=== PATIENT | female | born 1980 | race Caucasian/White ===

== ENCOUNTER 2024-03-09 20:21 | Emergency (ER) | payer BC ==
[~2024-03-09] VITALS: Ht 157.5 cm; Wt 113.4 kg
[2024-03-09 20:34] VITALS: BP_SYST 135; PULSE 80; RESP 18; TEMP 98.6; O2SAT 99
[2024-03-09 20:56] LABS: BASOPHILS # (AUTO) 0.1 K/uL (0.0-0.2); BASOPHILS % (AUTO) 0.9 % (0.0-2.0); EOSINOPHILS # (AUTO) 0.5 K/uL (0.0-0.4); EOSINOPHILS % (AUTO) 3.7 % (0.0-4.0); HEMATOCRIT 34.5 % (36-48); HEMOGLOBIN 11.3 g/dL (12.0-16.0); LYMPHOCYTES # (AUTO) 3.5 K/uL (1.0-5.5); LYMPHOCYTES % (AUTO) 27.3 % (20.5-51.5); MEAN CORPUSCULAR HEMOGLOBIN 26 pg (27-31); MEAN CORPUSCULAR HGB CONC 33 % (32-36); MEAN CORPUSCULAR VOLUME 80 fL (79.0-98.0); MONOCYTES # (AUTO) 0.6 K/uL (0.0-1.0); NEUTROPHILS # (AUTO) 8.2 K/uL (1.8-7.7); NEUTROPHILS % (AUTO) 63.1 % (40.0-70.0); PLATELET COUNT (AUTO) 341 K/uL (130-430); RED BLOOD CELL COUNT(AUTO) 4.33 MIL/uL (4.2-6.2); RED CELL DISTRIBUTION WIDTH 15.9 % (9.0-15.0)
[2024-03-09] MEDS: KETOROLAC TROMETHAMINE 60 MG/2 ML VIAL IM ONE (21:00)
[2024-03-09 21:19] LABS: ANION GAP 10 (5-15); CALCIUM 8.5 mg/dL (8.4-11.0); CARBON DIOXIDE 25 mmol/L (23-29); CHLORIDE 101 mmol/L (98-107); CREATININE 0.85 mg/dL (0.55-1.30); GFR AFRICAN AMERICAN 93 mL/min (>90); GLUCOSE 156 mg/dL (74-106); POTASSIUM 3.8 mmol/L (3.5-5.1); SODIUM SERUM 136 mmol/L (136-145); UREA NITROGEN, BLOOD 9 mg/dL (8-21)
[2024-03-09 21:20] LABS: GFR NON AFRICAN-AMERICAN 77 mL/min (>90)
[2024-03-09 21:26] LABS: THYROID STIMULATING HORMONE 2.64 uIu/mL (0.34-4.82)
[2024-03-10 01:08] VITALS: BP_SYST 153; PULSE 78; RESP 20; TEMP 98; O2SAT 98
== END 2024-03-10 01:08 | disposition home or self-care (01) ==
LOC: SED 20:21
DX: R07.89 Other chest pain (principal); E66.9 Obesity, unspecified; R73.03 Prediabetes; J45.909 Unspecified asthma, uncomplicated; Z68.42 Body mass index [BMI] 45.0-49.9, adult
CPT/HCPCS: 36415; 71045; 80048; 83880; 84439; 84443; 84484; 85025; 93005; 99285